=== PATIENT | female | born 1980 | race Caucasian/White ===

== ENCOUNTER 2024-05-23 19:38 | Inpatient (IN) ==
[2024-05-23] MEDS ORDERED: IOPAMIDOL 100 ML BOTTLE IV ONE (19:39)
[2024-05-23 20:53] LABS: Basophils # (Auto) 0.01 K/mcL (0.00-0.30); Basophils % (Auto) 0.1 % (0.0-2.0); Eosinophils # (Auto) 0 K/mcL (0.00-0.70); Eosinophils % (Auto) 0 % (0.0-7.0); Hematocrit 34.5 % (34.1-44.9); Hemoglobin 10.9 g/dL (11.2-15.7); Lymphocytes # (Auto) 0.48 K/mcL (1.50-4.80); Lymphocytes % (Auto) 2.8 % (15.5-49.0); Mean Cell Volume 82.5 fL (80.0-100.0); Mean Corpuscular HGB Conc 31.6 g/dL (31.0-36.0); Mean Platelet Volume 9.4 fL (8.8-12.5); Monocytes # (Auto) 0.84 K/mcL (0.10-0.90); Neutrophils % (Auto) 91.9 % (38.0-78.0); Platelet Count 180 K/mcL (140-440); RBC 4.18 M/mcL (3.59-5.38); Red Cell Distribution Width 15.8 % (11.5-14.5); WBC 16.9 K/mcL (4.5-11.0)
[2024-05-23 21:21] LABS: ALT/SGPT < 5 U/L (<40); AST/SGOT 15 U/L (<32); Albumin 3.7 gm/dL (3.2-5.2); Albumin/Globulin Ratio 1.3 (1.0-2.3); Alkaline Phosphatase 69 U/L (39-117); Bilirubin,Total 1.7 mg/dL (0.1-1.0); Blood Urea Nitrogen 14 mg/dL (6-20); Calcium 8.7 mg/dL (8.6-10.4); Carbon Dioxide 21 mmol/L (22-30); Chloride 98 mmol/L (96-108); Globulin 2.8 gm/dL (2.2-3.7); Glomerular Filtration Rate 90; Glucose 192 mg/dL (70-105); Potassium 3.6 mmol/L (3.3-5.1); Sodium 133 mmol/L (133-145)
[2024-05-23 21:58] LABS: ABG Methemoglobin 0 % (0.4-1.5); Total Hemoglobin 13.5 gm/Dl (12.0-15.0); VBG Base Excess -1 (-2-3); VBG HCO3 23.9 mmol/L (24.0-28.0); VBG Oxygen Saturation 48.3 % (40.0-70.0); VBG PCO2 39.1 mmHg (41.0-51.0); VBG Total CO2 25.1 mmol/L (25.0-29.0)
[2024-05-23] MEDS ORDERED: DEXTROSE 50% 50 ML VIAL IV PRN (23:05)
[2024-05-23] MEDS ORDERED: DEXTROSE 31 GM ORAL.SUSP PO PRN (23:05)
[2024-05-23] MEDS: cefTRIAXone 2 GM in DEXTROSE 5% IN WATER 50 ML IV ONE (23:38)
[2024-05-23] MEDS: IPRATROPIUM/ALBUTEROL 3 ML AMPUL.NEB NEB ONE (23:40)
[2024-05-23 23:58] LABS: Appearance,Urine Slightly Cloudy (Clear); Bilirubin,Urine Negative (Negative); Color,Urine Yellow; Culture Indicated,Urine No; Glucose,Urine (UA) Negative (Negative); Ketones,Urine 15 mg/dL (Negative); Leukocyte Esterase,Urine Negative /uL (Negative); Mucus,Urine Few /hpf; Nitrate,Urine Negative (Negative); PH,Urine 5.5 (5.0-9.0); Protein,Urine >=300 mg/dL (Negative); Specific Gravity,Urine >= 1.030 (1.000-1.035); Urine Blood Moderate ery/mcL (Negative); Urine Hyaline Cast 2 /lph (0-2); Urine RBC 0 /hpf (0-3); Urine Squamous Epithelial Cell 0 /hpf (0-4); Urine WBC 1 /hpf (0-4); Urobilinogen,Urine Normal
[2024-05-24 00:19] LABS: Hemoglobin A1C 6.4 % Hgb (4.0-6.0)
[2024-05-24] MEDS ORDERED: MAGNESIUM HYDROXIDE 30 ML ORAL.SUSP PO PRN (01:45)
[2024-05-24] MEDS ORDERED: SENNOSIDES 1 TABLET PO PRN (01:45)
[2024-05-24] MEDS ORDERED: ONDANSETRON 4 MG/2 ML VIAL IV PRN (01:45)
[2024-05-24] MEDS: DOXYCYCLINE 100 MG in DEXTROSE 5% IN WATER 100 ML IV SCH ×2 (02:22→12:10)
[2024-05-24] MEDS: LACTATED RINGERS 1,000 ML IV SCH (02:24)
[2024-05-24] MEDS: DOXYCYCLINE 100 MG in DEXTROSE 5% IN WATER 100 ML IV ONE (02:25)
[2024-05-24] MEDS: IPRATROPIUM/ALBUTEROL 3 ML AMPUL.NEB NEB SCH (03:21)
[2024-05-24 03:22] LABS: Basophils # (Auto) 0.01 K/mcL (0.00-0.30); Basophils % (Auto) 0.1 % (0.0-2.0); Eosinophils # (Auto) 0 K/mcL (0.00-0.70); Eosinophils % (Auto) 0 % (0.0-7.0); Hematocrit 35.4 % (34.1-44.9); Lymphocytes # (Auto) 0.46 K/mcL (1.50-4.80); Lymphocytes % (Auto) 2.7 % (15.5-49.0); Mean Cell Volume 83.7 fL (80.0-100.0); Mean Corpuscular HGB Conc 31.1 g/dL (31.0-36.0); Mean Platelet Volume 9.8 fL (8.8-12.5); Monocytes # (Auto) 1.08 K/mcL (0.10-0.90); Monocytes % (Auto) 6.3 % (1.0-12.0); Neutrophils % (Auto) 90.3 % (38.0-78.0); Platelet Count 169 K/mcL (140-440); RBC 4.23 M/mcL (3.59-5.38); WBC 17.3 K/mcL (4.5-11.0)
[2024-05-24 03:47] LABS: ALT/SGPT 7 U/L (<40); AST/SGOT 31 U/L (<32); Albumin 3.8 gm/dL (3.2-5.2); Albumin/Globulin Ratio 1.3 (1.0-2.3); Alkaline Phosphatase 72 U/L (39-117); Bilirubin,Direct 0.5 mg/dL (<0.3); Bilirubin,Total 1.8 mg/dL (0.1-1.0); Blood Urea Nitrogen 14 mg/dL (6-20); Calcium 8.9 mg/dL (8.6-10.4); Carbon Dioxide 22 mmol/L (22-30); Chloride 95 mmol/L (96-108); Globulin 2.9 gm/dL (2.2-3.7); Glomerular Filtration Rate 78; Glucose 197 mg/dL (70-105); Lactate Dehydrogenase 187 U/L (135-225); Phosphorous 2.1 mg/dL (2.5-4.5); Potassium 3.8 mmol/L (3.3-5.1); Sodium 132 mmol/L (133-145); Triglycerides 88 mg/dL (<150); Uric Acid 6.3 mg/dL (2.5-8.0)
[2024-05-24] MEDS: LACTATED RINGERS 1,000 ML IV ONE (04:05)
[2024-05-24] MEDS: 0.9 % SODIUM CHLORIDE 10 ML SYRINGE IV SCH (05:19)
[2024-05-24] MEDS: cefTRIAXone 1 GM VIAL IV SCH (09:07)
[2024-05-24] MEDS: INSULIN LISPRO 1 UNIT/0.01 ML UNIT SQ SCH (09:08)
[2024-05-24] MEDS: CITALOPRAM 20 MG TABLET PO SCH (09:09)
[2024-05-24] MEDS: FLUTICASONE PROPIONATE SPRAY.NAS NS SCH (09:10)
[2024-05-24] MEDS: METOPROLOL SUCCINATE 50 MG TAB.XL.24H PO SCH (09:13)
[2024-05-24] MEDS: HEPARIN 5,000 UNIT/ML VIAL SQ SCH (09:17)
[2024-05-24] MEDS ORDERED: DOXYCYCLINE 100 MG in DEXTROSE 5% IN WATER 100 ML IV SCH (12:00)
[2024-05-24 17:31] LABS: Basophils # (Auto) 0.01 K/mcL (0.00-0.30); Basophils % (Auto) 0.1 % (0.0-2.0); Eosinophils # (Auto) 0 K/mcL (0.00-0.70); Eosinophils % (Auto) 0 % (0.0-7.0); Hemoglobin 10.4 g/dL (11.2-15.7); Lymphocytes # (Auto) 0.84 K/mcL (1.50-4.80); Lymphocytes % (Auto) 6.4 % (15.5-49.0); Mean Cell Volume 82.9 fL (80.0-100.0); Mean Corpuscular HGB Conc 31.5 g/dL (31.0-36.0); Mean Platelet Volume 9.7 fL (8.8-12.5); Monocytes # (Auto) 0.77 K/mcL (0.10-0.90); Monocytes % (Auto) 5.8 % (1.0-12.0); Neutrophils % (Auto) 87.2 % (38.0-78.0); Platelet Count 165 K/mcL (140-440); RBC 3.98 M/mcL (3.59-5.38); Red Cell Distribution Width 16.4 % (11.5-14.5); WBC 13.2 K/mcL (4.5-11.0)
[2024-05-24] MEDS: ACETAMINOPHEN 325 MG TABLET PO PRN (18:45)
[2024-05-25 07:56] LABS: Basophils # (Auto) 0.01 K/mcL (0.00-0.30); Basophils % (Auto) 0.1 % (0.0-2.0); Eosinophils # (Auto) 0.03 K/mcL (0.00-0.70); Eosinophils % (Auto) 0.3 % (0.0-7.0); Hematocrit 32.7 % (34.1-44.9); Hemoglobin 10.3 g/dL (11.2-15.7); Lymphocytes # (Auto) 1.03 K/mcL (1.50-4.80); Lymphocytes % (Auto) 11.8 % (15.5-49.0); Mean Cell Volume 83.4 fL (80.0-100.0); Mean Corpuscular HGB Conc 31.5 g/dL (31.0-36.0); Mean Platelet Volume 10.7 fL (8.8-12.5); Monocytes # (Auto) 0.47 K/mcL (0.10-0.90); Monocytes % (Auto) 5.4 % (1.0-12.0); Neutrophils % (Auto) 82.1 % (38.0-78.0); Platelet Count 138 K/mcL (140-440); RBC 3.92 M/mcL (3.59-5.38); Red Cell Distribution Width 16.4 % (11.5-14.5); WBC 8.7 K/mcL (4.5-11.0)
[2024-05-25 08:05] LABS: ALT/SGPT 13 U/L (<40); AST/SGOT 69 U/L (<32); Albumin 3.4 gm/dL (3.2-5.2); Alkaline Phosphatase 69 U/L (39-117); Bilirubin,Direct 0.3 mg/dL (<0.3); Bilirubin,Total 1.2 mg/dL (0.1-1.0); Blood Urea Nitrogen 15 mg/dL (6-20); Calcium 8.6 mg/dL (8.6-10.4); Carbon Dioxide 20 mmol/L (22-30); Chloride 98 mmol/L (96-108); Globulin 3.3 gm/dL (2.2-3.7); Glomerular Filtration Rate 105; Glucose 141 mg/dL (70-105); Lactate Dehydrogenase 251 U/L (135-225); Phosphorous 2.8 mg/dL (2.5-4.5); Potassium 3.9 mmol/L (3.3-5.1); Sodium 133 mmol/L (133-145); Triglycerides 184 mg/dL (<150); Uric Acid 6.4 mg/dL (2.5-8.0)
[2024-05-25] MEDS ORDERED: cefTRIAXone 1 GM VIAL IV SCH (09:00)
[2024-05-25] MEDS ORDERED: VANCOMYCIN PER PHARMACY IV SCH (09:19)
[2024-05-25] MEDS: cefTRIAXone 2 GM in DEXTROSE 5% IN WATER 50 ML IV SCH (10:14)
[2024-05-25] MEDS: VANCOMYCIN 1,500 MG in 0.9 % SODIUM CHLORIDE 500 ML IV SCH (11:29)
[2024-05-25] MEDS ORDERED: ACETAMINOPHEN 500 MG TABLET PO PRN (11:55)
[2024-05-25] MEDS: IPRATROPIUM/ALBUTEROL 3 ML AMPUL.NEB NEB PRN (13:58)
[2024-05-25] MEDS: MELATONIN 3 MG TABLET PO SCH (21:58)
[2024-05-26 06:42] LABS: ALT/SGPT 6 U/L (<40); AST/SGOT 43 U/L (<32); Albumin 3.3 gm/dL (3.2-5.2); Albumin/Globulin Ratio 1.1 (1.0-2.3); Alkaline Phosphatase 62 U/L (39-117); Bilirubin,Direct 0.3 mg/dL (<0.3); Bilirubin,Total 1.1 mg/dL (0.1-1.0); Blood Urea Nitrogen 12 mg/dL (6-20); Calcium 8.3 mg/dL (8.6-10.4); Carbon Dioxide 22 mmol/L (22-30); Chloride 99 mmol/L (96-108); Globulin 2.9 gm/dL (2.2-3.7); Glomerular Filtration Rate 111; Glucose 141 mg/dL (70-105); Lactate Dehydrogenase 206 U/L (135-225); Phosphorous 2.1 mg/dL (2.5-4.5); Potassium 3.5 mmol/L (3.3-5.1); Sodium 134 mmol/L (133-145); Triglycerides 163 mg/dL (<150); Uric Acid 6.1 mg/dL (2.5-8.0)
[2024-05-26 06:55] LABS: Basophils # (Auto) 0.02 K/mcL (0.00-0.30); Basophils % (Auto) 0.2 % (0.0-2.0); Eosinophils # (Auto) 0.04 K/mcL (0.00-0.70); Eosinophils % (Auto) 0.4 % (0.0-7.0); Hematocrit 29.7 % (34.1-44.9); Hemoglobin 9.4 g/dL (11.2-15.7); Lymphocytes # (Auto) 1.12 K/mcL (1.50-4.80); Lymphocytes % (Auto) 12.4 % (15.5-49.0); Mean Cell Volume 81.8 fL (80.0-100.0); Mean Corpuscular HGB Conc 31.6 g/dL (31.0-36.0); Mean Platelet Volume 10.9 fL (8.8-12.5); Monocytes % (Auto) 6.7 % (1.0-12.0); Platelet Count 168 K/mcL (140-440); RBC 3.63 M/mcL (3.59-5.38)
[2024-05-27 05:46] LABS: Basophils # (Auto) 0.02 K/mcL (0.00-0.30); Basophils % (Auto) 0.3 % (0.0-2.0); Eosinophils # (Auto) 0.09 K/mcL (0.00-0.70); Eosinophils % (Auto) 1.2 % (0.0-7.0); Hematocrit 28.9 % (34.1-44.9); Hemoglobin 9.1 g/dL (11.2-15.7); Lymphocytes # (Auto) 1.17 K/mcL (1.50-4.80); Lymphocytes % (Auto) 15.5 % (15.5-49.0); Mean Cell Volume 82.1 fL (80.0-100.0); Mean Corpuscular HGB Conc 31.5 g/dL (31.0-36.0); Mean Platelet Volume 10.1 fL (8.8-12.5); Monocytes # (Auto) 0.58 K/mcL (0.10-0.90); Monocytes % (Auto) 7.7 % (1.0-12.0); Platelet Count 168 K/mcL (140-440); RBC 3.52 M/mcL (3.59-5.38); Red Cell Distribution Width 16.1 % (11.5-14.5); WBC 7.5 K/mcL (4.5-11.0)
[2024-05-27 06:19] LABS: ALT/SGPT 11 U/L (<40); AST/SGOT 32 U/L (<32); Albumin 3.3 gm/dL (3.2-5.2); Albumin/Globulin Ratio 1.2 (1.0-2.3); Alkaline Phosphatase 63 U/L (39-117); Bilirubin,Direct 0.2 mg/dL (<0.3); Bilirubin,Total 0.8 mg/dL (0.1-1.0); Blood Urea Nitrogen 11 mg/dL (6-20); Calcium 8.4 mg/dL (8.6-10.4); Carbon Dioxide 23 mmol/L (22-30); Chloride 99 mmol/L (96-108); Globulin 2.7 gm/dL (2.2-3.7); Glomerular Filtration Rate 111; Glucose 144 mg/dL (70-105); Lactate Dehydrogenase 191 U/L (135-225); Phosphorous 2.6 mg/dL (2.5-4.5); Potassium 3.5 mmol/L (3.3-5.1); Sodium 134 mmol/L (133-145); Triglycerides 145 mg/dL (<150); Uric Acid 5.8 mg/dL (2.5-8.0)
[2024-05-27] MEDS: LACTATED RINGERS 1,000 ML IV SCH (14:39)
[2024-05-27] MEDS ORDERED: IOPAMIDOL 100 ML BOTTLE IV ONE (16:59)
[2024-05-28 06:07] LABS: Basophils # (Auto) 0.04 K/mcL (0.00-0.30); Basophils % (Auto) 0.5 % (0.0-2.0); Eosinophils # (Auto) 0.15 K/mcL (0.00-0.70); Hematocrit 31.3 % (34.1-44.9); Hemoglobin 9.9 g/dL (11.2-15.7); Lymphocytes # (Auto) 1.23 K/mcL (1.50-4.80); Mean Cell Volume 82.2 fL (80.0-100.0); Mean Corpuscular HGB Conc 31.6 g/dL (31.0-36.0); Monocytes # (Auto) 0.47 K/mcL (0.10-0.90); Monocytes % (Auto) 6.1 % (1.0-12.0); Neutrophils % (Auto) 72.9 % (38.0-78.0); Platelet Count 178 K/mcL (140-440); RBC 3.81 M/mcL (3.59-5.38); Red Cell Distribution Width 15.9 % (11.5-14.5); WBC 7.7 K/mcL (4.5-11.0)
[2024-05-28 06:51] LABS: ALT/SGPT 10 U/L (<40); AST/SGOT 24 U/L (<32); Albumin 3.2 gm/dL (3.2-5.2); Albumin/Globulin Ratio 1.1 (1.0-2.3); Alkaline Phosphatase 66 U/L (39-117); Bilirubin,Direct < 0.2 mg/dL (0-0.3); Bilirubin,Total 0.7 mg/dL (0.1-1.0); Blood Urea Nitrogen 11 mg/dL (6-20); Calcium 8.7 mg/dL (8.6-10.4); Carbon Dioxide 24 mmol/L (22-30); Chloride 101 mmol/L (96-108); Glomerular Filtration Rate 111; Glucose 138 mg/dL (70-105); Lactate Dehydrogenase 193 U/L (135-225); Phosphorous 3.3 mg/dL (2.5-4.5); Potassium 3.7 mmol/L (3.3-5.1); Sodium 136 mmol/L (133-145); Triglycerides 165 mg/dL (<150); Uric Acid 5.6 mg/dL (2.5-8.0)
[2024-05-28] MEDS: FUROSEMIDE 40 MG/4 ML VIAL IV ONE ×2 (11:13→21:25)
[2024-05-28] MEDS: hydrOXYzine 25 MG TABLET PO PRN (15:46)
[2024-05-29 06:01] LABS: Basophils # (Auto) 0.03 K/mcL (0.00-0.30); Basophils % (Auto) 0.5 % (0.0-2.0); Eosinophils # (Auto) 0.14 K/mcL (0.00-0.70); Eosinophils % (Auto) 2.2 % (0.0-7.0); Hematocrit 31.9 % (34.1-44.9); Hemoglobin 9.7 g/dL (11.2-15.7); Lymphocytes # (Auto) 1.26 K/mcL (1.50-4.80); Lymphocytes % (Auto) 19.4 % (15.5-49.0); Mean Cell Volume 84.6 fL (80.0-100.0); Mean Corpuscular HGB Conc 30.4 g/dL (31.0-36.0); Mean Platelet Volume 9.7 fL (8.8-12.5); Monocytes # (Auto) 0.45 K/mcL (0.10-0.90); Monocytes % (Auto) 6.9 % (1.0-12.0); Neutrophils % (Auto) 66.1 % (38.0-78.0); Platelet Count 195 K/mcL (140-440); RBC 3.77 M/mcL (3.59-5.38); Red Cell Distribution Width 15.8 % (11.5-14.5); WBC 6.5 K/mcL (4.5-11.0)
[2024-05-29 06:35] LABS: Blood Urea Nitrogen 9 mg/dL (6-20); Calcium 8.7 mg/dL (8.6-10.4); Carbon Dioxide 23 mmol/L (22-30); Chloride 104 mmol/L (96-108); Glomerular Filtration Rate 111; Glucose 134 mg/dL (70-105); Potassium 3.5 mmol/L (3.3-5.1); Sodium 141 mmol/L (133-145)
[2024-05-29] MEDS: CEFDINIR 300 MG CAPSULE PO SCH (08:35)
[2024-05-29] MEDS: FUROSEMIDE 40 MG/4 ML VIAL IV ONE (10:59)
[2024-05-29] MEDS: FUROSEMIDE 40 MG/4 ML VIAL IV SCH (17:06)
[2024-05-29] MEDS: AMOXICILLIN/POTASSIUM CLAV 875 MG TABLET PO SCH (22:09)
[2024-05-30] MEDS ORDERED: VANCOMYCIN 1,750 MG in 0.9 % SODIUM CHLORIDE 500 ML IV SCH (06:00)
[2024-05-30 06:06] LABS: Basophils # (Auto) 0.02 K/mcL (0.00-0.30); Basophils % (Auto) 0.2 % (0.0-2.0); Eosinophils # (Auto) 0.18 K/mcL (0.00-0.70); Eosinophils % (Auto) 2.2 % (0.0-7.0); Hematocrit 33.9 % (34.1-44.9); Hemoglobin 10.1 g/dL (11.2-15.7); Lymphocytes # (Auto) 1.58 K/mcL (1.50-4.80); Lymphocytes % (Auto) 19.2 % (15.5-49.0); Mean Cell Volume 86.9 fL (80.0-100.0); Mean Corpuscular HGB Conc 29.8 g/dL (31.0-36.0); Mean Platelet Volume 10.1 fL (8.8-12.5); Monocytes # (Auto) 0.57 K/mcL (0.10-0.90); Monocytes % (Auto) 6.9 % (1.0-12.0); Neutrophils % (Auto) 65.9 % (38.0-78.0); Platelet Count 231 K/mcL (140-440); Red Cell Distribution Width 16.4 % (11.5-14.5); WBC 8.3 K/mcL (4.5-11.0)
[2024-05-30 06:38] LABS: Blood Urea Nitrogen 11 mg/dL (6-20); Calcium 8.7 mg/dL (8.6-10.4); Carbon Dioxide 25 mmol/L (22-30); Chloride 100 mmol/L (96-108); Glomerular Filtration Rate 111; Glucose 136 mg/dL (70-105); Potassium 3.6 mmol/L (3.3-5.1); Sodium 139 mmol/L (133-145)
== END 2024-05-30 11:58 | disposition home or self-care (01) | DRG 871 ==
LOC: ED 19:38 → MEDSUR 05-24 01:30
PROVIDERS: ADMIT Student in an Organized Health Care Education/Training Program; ATTEND Student in an Organized Health Care Education/Training Program